=== PATIENT | male | born 1980 | race Caucasian/White ===

== ENCOUNTER 2025-04-05 16:43 | Emergency (ER) | payer OTHER, SELFPAY ==
[2025-04-05 17:03] VITALS: BP 125/84; PULSE 89; RESP 16; TEMP 36.7; O2SAT 96
--- NOTE | 2025-04-05 18:21 | ED.GENADULT ---
HPI - General Adult General Chief complaint: Insect Bite Stated complaint: Tick bite on right calf Time Seen by Provider: 04/05/25 17:07 History of Present Illness HPI narrative: Pt was bit by unknown insect either this past Tuesday or Tuesday. [place] Has reddened area on right calf. He states the area has changed rapidly since this morning. States it is more reddened, swollen, and painful. Went to earlier today and was given ABX but was told not to start unless whole leg is affected per patient report. He did start the ABX Cephalexin 500mg today at 1500. He was also given triamcinolone cream and used that 1 time as well. 44-year-old man presenting to emergency department with concern of rapidly progressing sore or rash on his right upper calf. He is experiencing pain. Unknown time of bite if that is what it was. He also doubts that it was plant dermatitis as he has spent a lot of time in the [place] or other outdoor activities and has never reacted likely exposure to plants. Had been in the [place] again this last week. He has now noticed a right inguinal lymph node to be swollen. Took initial dose of cephalexin this afternoon due to worsening. Seem to be progressing rapidly. Has also applied triamcinolone cream. Does have medical family members who who are recommending evaluation and blood work. Question of brown recluse bite and did not note any spider about. Related Data Previous Rx's ?Medication ?Instructions ?Recorded cephalexin 500 mg capsule 500 mg PO TID 7 days #21 caps 04/05/25 triamcinolone acetonide 0.1 % 1 applic topical BID 10 days #30 04/05/25 topical cream grams Allergies Allergy/AdvReac Type Severity Reaction Status Date / Time No Known Drug Allergies Allergy Verified 04/05/25 14:18 Review of Systems Status of ROS: Reports: 6 or more systems reviewed and unremarkable except as noted in History and below Exam Narrative: Exam Narrative: Pleasant. NAD. Well built. Vitals look good. Breathing easily. Skin is warm and dry. Area in question which is the upper right calf slightly medial shows a palm sized area of mild erythema with a central oval maximal dimension about 4 cm of what is becoming more purple to indurated near blistering skin. I do not see a central punctum though there is a subcentimeter central clearing. Tender generally palpation. There is mild calor is well. Well-perfused peripherally. No tissue breakdown at this point. No ulcer. He has noted lymph node in the right groin area; I offered to examine but he said it was okay. Const: Vital Signs, click to edit/add: Vital Signs - 24 hr 04/05/25 17:03 Temperature 98.1 F Pulse Rate [Pulse Oximeter] 89 Respiratory Rate 16 Blood Pressure [Ri ght Upper Arm] 125/84 Pulse Oximetry 96 Oxygen Delivery Me thod Room Air Documenting provider has reviewed patient's vital signs: yes Course Vital Signs Vital signs: Initial Vital Signs Temperature 98.1 F 04/05/25 17:03 Temperature Source Temporal Artery Scan 04/05/25 17:03 Pulse Rate 89 04/05/25 17:03 Pulse Rhythm Regular 04/05/25 17:03 Respiratory Rate 16 04/05/25 17:03 Blood Pressure 125/84 04/05/25 17:03 Blood Pressure Mean 97 04/05/25 17:03 Blood Pressure Position Sitting 04/05/25 17:03 Pulse Oximetry 96 04/05/25 17:03 Oxygen Delivery Method Room Air 04/05/25 17:03 Vital Signs Temperature 98.1 F 04/05/25 17:03 Pulse Rate 89 04/05/25 17:03 Respiratory Rate 16 04/05/25 17:03 Blood Pressure 125/84 04/05/25 17:03 Pulse Oximetry 96 04/05/25 17:03 Oxygen Delivery Method Room Air 04/05/25 17:03 Temperature 98.1 F 04/05/25 20:48 Pulse Rate 85 04/05/25 20:48 Respiratory Rate 16 04/05/25 20:48 Blood Pressure 118/74 04/05/25 20:48 Pulse Oximetry 96 04/05/25 20:37 Oxygen Delivery Method Room Air 04/05/25 20:37 Medications Administered Medications: Discontinued Medications Generic Name Dose Route Start Last Admin Trade Name Freq PRN Reason Stop Dose Admin Ceftriaxone Sodium 1 gm 04/05/25 19:39 04/05/25 19:48 Ceftriaxone 1 Gm Vial IM 04/05/25 19:40 1 gm ONCE ONE Administration Diphtheria/Tetanus/Acell Pertussis 0.5 ml 04/05/25 20:39 04/05/25 20:41 Tetanus/Diphth/Pertussis 0.5 Ml Syringe IM 04/05/25 20:40 0.5 ml .ONCE ONE Administration Ibuprofen 600 mg 04/05/25 19:40 04/05/25 19:48 Ibuprofen 200 Mg Tablet PO 04/05/25 19:41 600 mg ONCE ONE Administration Lidocaine HCl 2.1 ml 04/05/25 19:39 04/05/25 19:49 Lidocaine 1% 5 Ml (Pf) 5 Ml Vial IM 2.1 ml DIRECTED PRN Administration Pain Medical Decision Making MDM Narrative Medical decision making narrative: Would appear to have cellulitis that I think would be prudent to treat partly due to rate of spread per his description. Would check baseline labs. I do not know that this will change course of treatment. Consider giving g of Rocephin here in the emergency department and increasing frequency dosing of cephalexin. Am concerned about possible MRSA. If there is any ulceration develops would have more concerns about MRSA or possibly brown recluse. Regardless if the latter would be more symptomatic treatment unless he typically worsens and might need some debridement. If considering brown recluse concern also would be of tetanus. He is due for tetanus update; particularly a good idea given his occupation. I think less likely plant dermatitis here. No abrasion on the skin to suggest trauma. I do not think there is an abscess here or anything drainable. Rocephin given in the ER. Updated Adacel Question was also raised about possible Lyme. Did discuss with colleagues who also assessed his leg and would recommend expanding treatment to include Lyme coverage. Will test for this as well. White count is elevated at 15,000 but with normal CRP. See patient discharge plan for further discussion Stay well-hydrated. Can take up to 800 mg of ibuprofen or up to 1000 mg of acetaminophen per dose. Elevate when at rest. Changing antibiotics from cephalexin to doxycycline. Start this antibiotic tonight. This will likely cover MRSA organisms as well as Lyme. Lyme testing is pending. Doxycycline from [facility]. Will need to particularly protect from the sun during this course of antibiotic and for a few days beyond. Monitor for marked increase in spread of this rash associated with pain, ulceration, fever, purulent drainage. Medical Records Medical records reviewed: Yes I reviewed the patient's medical records Lab Data Lab results reviewed: Yes I reviewed the patient's lab results Labs: Lab Results 04/05/25 Range/Units 18:51 WBC 15.18 H (4.50-11.00) K/uL RBC 5.85 (4.30-5.90) m/uL Hgb 17.8 H (13.5-17.5) gm/dL Hct 51.8 (37.0-53.0) % MCV 89 (80-100) fL MCH 30 (26-34) pg MCHC 34 (32-36) gm/dL RDW Coeff of Charley 12.7 (11.5-15.5) % Plt Count 260 (140-440) K/uL Neut % (Auto) 82.8 H (42.0-72.0) % Lymph % (Auto) 8.4 L (20-44) % [place] % (Auto) 7.6 (0.0-11.0) % Eos % (Auto) 0.8 (0.0-7.0) % Baso % (Auto) 0.3 (0.0-3.0) % Neut # (Auto) 12.60 H (1.7-7.0) K/uL Lymph # (Auto) 1.30 (0.90-2.90) K/uL [place] # (Auto) 1.20 H (0.00-0.90) K/UL Eos # (Auto) 0.10 (0.00-0.50) K/uL Baso # (Auto) 0.00 (0.00-0.30) K/uL Abs Immat Gran (auto) 0.00 (0.00-0.30) K/uL Imm/Tot Granulo (auto) 0.1 % Sodium 140 (135-149) mmol/L Potassium 4.6 (3.6-5.1) mmol/L Chloride 103 (96-114) mmol/L Carbon Dioxide 27 (20-32) mmol/L Anion Gap 10 (7-15) mEq/L BUN 14 (5-24) mg/dL Creatinine 1.1 (0.5-1.5) mg/dL Estimated GFR 85 ml/min Glucose 81 (60-115) mg/dL Calcium 9.6 (8.4-10.6) mg/dL C-Reactive Protein 0.9 (0.5-1.0) mg/dL Discharge Plan Discharge Clinical Impression: Rash Patient Disposition: Home, Self-Care Condition: Stable Additional Instructions: Stay well-hydrated. Can take up to 800 mg of ibuprofen or up to 1000 mg of acetaminophen per dose. Elevate when at rest. Changing antibiotics from cephalexin to doxycycline. Start this antibiotic tonight. This will likely cover MRSA organisms as well as Lyme. Lyme testing is pending. Doxycycline from [facility]. Will need to particularly protect from the sun during this course of antibiotic and for a few days beyond. Monitor for marked increase in spread of this rash associated with pain, ulceration, fever, purulent drainage. Prescriptions: No Action triamcinolone acetonide 0.1 % cream 1 applic topical BID 10 Days Qty: 30 0RF cephalexin 500 mg capsule 500 mg PO TID 7 Days Qty: 21 0RF Follow Up/Referrals: Luis Miguel Barajas MD [Primary Care Provider, Family Practice] Stand Alone Forms: [employer] Info Instructions
[2025-04-05 18:57] LABS: Basophils Percent Auto 0.3 % (0.0-3.0); Eosinophils Percent Auto 0.8 % (0.0-7.0); Hematocrit 51.8 % (37.0-53.0); Hemoglobin* 17.8 gm/dL (13.5-17.5); Immature Granulocytes Pct Auto 0.1 %; Lymphocytes Percent Auto 8.4 % (20-44); Mean Corpuscular HGB Conc 34 gm/dL (32-36); Mean Corpuscular Hemoglobin 30 pg (26-34); Mean Corpuscular Volume 89 fL (80-100); Monocytes Percent Auto 7.6 % (0.0-11.0); Neutrophils Percent Auto 82.8 % (42.0-72.0); Platelet Count* 260 K/uL (140-440); RDW Coefficient of Variation % 12.7 % (11.5-15.5); Red Blood Count 5.85 m/uL (4.30-5.90); White Blood Count* 15.18 K/uL (4.50-11.00)
[2025-04-05 19:00] LABS: Slide Review Reflex No
[2025-04-05 19:11] LABS: Chloride* 103 mmol/L (96-114)
[2025-04-05 19:12] LABS: Potassium* 4.6 mmol/L (3.6-5.1); Sodium* 140 mmol/L (135-149)
[2025-04-05 19:15] LABS: Anion Gap 10 mEq/L (7-15); Blood Urea Nitrogen* 14 mg/dL (5-24); Calcium* 9.6 mg/dL (8.4-10.6); Carbon Dioxide* 27 mmol/L (20-32); Creatinine* 1.1 mg/dL (0.5-1.5); Estimated Glomerular Filt Rate 85 ml/min; Glucose* 81 mg/dL (60-115)
[2025-04-05 19:18] LABS: C Reactive Protein* 0.9 mg/dL (0.5-1.0)
[2025-04-05 19:48] VITALS: TEMP 36.7
[2025-04-05] MEDS: IBUPROFEN 200 MG TABLET 600 MG PO (19:48)
[2025-04-05] MEDS: cefTRIAXone 1 GM VIAL IM (19:48)
[2025-04-05] MEDS: LIDOCAINE 1% 5 ml (pf) 5 ML VIAL 2.1 ML IM (19:49)
[2025-04-05 20:37] VITALS: BP 118/74; PULSE 85; RESP 16; TEMP 36.7; O2SAT 96
[2025-04-05] MEDS: TETANUS/DIPHTH/PERTUSSIS 0.5 ML SYRINGE IM (20:41)
[2025-04-05 20:48] VITALS: BP 118/74; PULSE 85; RESP 16; TEMP 36.7
--- NOTE | 2025-04-06 13:56 | ED.NURSE ---
Patient called to inquire about which lab testing was completed during ED visit yesterday. Patient gave verbal consent to release information. Tests completed and results were given over phone.
[2025-04-07 14:56] LABS: Lyme ELISA Reflex 0.24 IV (<=0.90)
[2025-04-08 15:37] LABS: Anaplasma phagocyt PCR Not Detected; Babesia microti by PCR Not Detected; Babesia species by PCR Not Detected; Ehrlichia chaffeensis by PCR Not Detected; Ehrlichia ewingii/canis by PCR Not Detected; Ehrlichia muris-like by PCR Not Detected
== END 2025-04-05 20:49 | disposition home or self-care (01) ==
PROVIDERS: Emergency Provider Family Medicine; PCP Family Medicine
DX: L03.115 Cellulitis of right lower limb (principal); R21 Rash and other nonspecific skin eruption; Z20.818 Contact with and (suspected) exposure to other bacterial communicable diseases; Z23 Encounter for immunization
CPT/HCPCS: 36415; 80048; 85025; 86140; 86618; 87468; 87469; 87484; 87798; 90471; 90715; 96372; 99284; A9270; J0696

== ENCOUNTER 2025-06-24 15:49 | Outpatient (CLI) | payer OTHER, SELFPAY | END 2025-06-24 15:50 | disposition home or self-care (01) | PROVIDERS: PCP Internal Medicine; Visit Provider Physician Assistant | DX: L28.2 Other prurigo (principal) | CPT/HCPCS: 80076; 84443 ==